=== PATIENT | male | born 1960 | race Hispanic/Latino ===

== ENCOUNTER 2018-06-16 14:50 | Emergency (ER) | payer BC, OTHER ==
[2018-06-16 14:56] VITALS: BP 141/87; PULSE 96; RESP 18; TEMP 97.6; O2SAT 99
--- NOTE | 2018-06-16 15:50 | ED PDOC ---
Upper Extremity Pain/Injury Time Seen by Provider: 06/16/18 14:57 Chief Complaint (Nursing): Upper Extremity Problem/Injury Chief Complaint (Provider): Upper Extremity Problem/Injury History Per: Patient History/Exam Limitations: no limitations Onset/Duration Of Symptoms: Days (1x week) Current Symptoms Are (Timing): Still Present Additional Complaint(s): 58 year old male with a medical history of hypertension presents to the ED for an evaluation of left shoulder pain that has been worsening for x1 week. At onset, patient reports he was trying to pull a bag of dog food from a high shelf, which is when the pain started. Patient states that the pain was initially not bad, but has worsened throughout this past week. Patient reports taking anti-inflammatories with no relief (none taken today). Pain now interferes with sleeping and worsens with movement. Otherwise: (-) radiation of pain, (-) falls, (-) trauma to the area, (-) previous shoulder injuries, (-) previous shoulder surgeries, (-) shortness of breath, (-) chest pain, (-) cough, (-) fever, (-) nausea, (-) vomiting, (-) diarrhea, (-) abdominal pain. PMD: Allen Carnes MD Past Medical History Reviewed: Historical Data, Nursing Documentation, Vital Signs Vital Signs: Last Vital Signs Temp 97.6 F 06/16/18 14:53 Pulse 96 H 06/16/18 14:53 Resp 18 06/16/18 14:53 BP 141/87 06/16/18 14:53 Pulse Ox 99 06/16/18 14:53 - Medical History PMH: HTN - Surgical History Surgical History: Tonsillectomy Other surgeries: multiple procedures to left ankle - Family History Family History: States: Unknown Family Hx - Living Arrangements Living Arrangements: With Family - Social History Current smoker - smoking cessation education provided: Yes (<10 cigarettes daily) Alcohol: Social Drugs: Denies - Home Medications Home Medications: Ambulatory Orders Medication Instructions Recorded Atenolol 25 mg PO DAILY 06/27/14 Hydrochlorothiazide [HCTZ] 12.5 mg PO DAILY 06/27/14 Acetaminophen [Acetaminophen 8 650 mg PO Q8 PRN #21 tablet.er 06/16/18 Hour] Meloxicam [Mobic] 15 mg PO DAILY PRN #10 tab 11/24/18 Methocarbamol [Robaxin] 750 mg PO Q8 PRN #12 tab 06/16/18 - Allergies Allergies/Adverse Reactions: Allergies Allergy/AdvReac Type Severity Reaction Status Date / Time prochlorperazine Allergy DIZZINESS Verified 06/16/18 14:52 [From Compazine] Review of Systems ROS Statement: Except As Marked, All Systems Reviewed And Found Negative Constitutional: Negative for: Fever Cardiovascular: Negative for: Chest Pain Respiratory: Negative for: Cough, Shortness of Breath Gastrointestinal: Negative for: Nausea, Vomiting, Abdominal Pain Musculoskeletal: Positive for: Shoulder Pain (left) Physical Exam - Reviewed Nursing Documentation Reviewed: Yes Vital Signs Reviewed: Yes - Physical Exam Comments: GENERAL APPEARANCE: Patient is awake, alert, oriented x 3, resting comfortably; in no acute distress. SKIN: Warm, dry; (-) cyanosis. NECK: Supple, FROM CHEST AND RESPIRATORY: (-) rales, (-) rhonchi, (-) wheezes; breath sounds equal bilaterally. Respirations even and nonlabored. HEART AND CARDIOVASCULAR: (-) irregularity LEFT SHOULDER: Decreased abduction and extension secondary to pain. Tenderness to anterior and lateral aspects of left shoulder, AC joint, distal clavicle, and proximal humerus. (-) AC joint deformity (-) swelling, (-) crepitus, (-) erythema, (-) warmth, (-) ecchymosis (-) tenting. Sensation intact throughout upper extremity, remainder of upper extremity: full ROM. Slat Grader strength equal. Distal pulses 2+. NEURO AND PSYCH: Mental status as above. Gait: steady. Speech: clear. (-) facial asymmetry (-) aphasia - ECG O2 Sat by Pulse Oximetry: 99 (RA) Pulse Ox Interpretation: Normal Medical Decision Making Medical Decision Makin:55 Clinical impression: 58 year old male with acute shoulder pain Initial impression: -XRay shoulder left -Toradol 30 mg IM -Ultram 50 mg PO (Not driving home) 15:56 XRay shoulder left read and reviewed by radiologist. Report follows: FINDINGS: BONES: No evidence of acute displaced fracture nor dislocation. The osseous structures appear intact JOINTS: Mild degenerative osteoarthritis left acromioclavicular and glenohumeral joints. SOFT TISSUES: Normal. OTHER FINDINGS: None. IMPRESSION: No acute fractures. Mild DJD as described. Upon discussion of results with patient, patient requesting discharge with Percocet. When advised that percocet would not be supplied, patient requesting to speak with supervising MD. Case discussed with Dr Arce, who is agreeable to evaluating patient at bedside. 1650 Patient seen at bedside by Dr Arce. Upon review of [facility], patient with two Percocet perscriptions in 2018 - one in November and one in February. On exam, patient remains AAOx3, in no acute distress. Lungs clear to auscultation, cardiac RRR, repeat neuro exam shows no focal findings. Vitals stable. Lab/Diagnostic results d/w the patient in great detail. Diagnosis of acute shoulder pain, OA of shoulder, calcific tendonitis d/w the patient. Based on history, exam and diagnostic results, plan will be for outpatient follow up with PMD/ortho. Patient instructed to follow-up with pmd / referral provided / the clinic in 1- 2 days without fail. Advised to take medication as prescribed. Return to the emergency room at any time for any new or worsening symptoms. Patient states he fully agrees with and understands discharge instructions. States that he agrees with the plan and disposition. Verbalized and repeated discharge instructions and plan. I have given the patient opportunity to ask any additional questions. Scribe Attestation: Documented by Sandy Quigley, acting as a scribe for Sandy Smith. Provider Scribe Attestation: All medical record entries made by the Scribe were at my direction and personally dictated by me. I have reviewed the chart and agree that the record accurately reflects my personal performance of the history, physical exam, medical decision making, and the department course for this patient. I have also personally directed, reviewed, and agree with the discharge instructions and disposition. Disposition - Clinical Impression Clinical Impression: Acute shoulder pain, Muscle strain of left shoulder, Calcific tendonitis of left shoulder, Osteoarthritis of left shoulder - Patient ED Disposition Is Patient to be Admitted: No Counseled Patient/Family Regarding: Studies Performed, Diagnosis, Need For Followup, Rx Given - Disposition Referrals: Allen Carnes MD [Staff Provider] - Yohannes Judge MD [Staff Provider] - Disposition: Routine/Home Disposition Time: 16:50 Condition: STABLE Additional Instructions: The emergency medical care you received today was directed at your acute symptoms. If you were prescribed any medication, please fill it and take as directed. It may take several days for your symptoms to resolve. Return to the Emergency Department if your symptoms worsen, do not improve, or if you have any other problems. Please contact your doctor in 2 days for re-evaluation and follow up / or call one of the physicians/clinics you have been referred to that are listed on the Patient Visit Information form that is included in your discharge packet. Bring any paperwork you were given at discharge with you along with any medications you are taking to your follow up visit. Our treatment cannot replace ongoing medical care by a primary care provider (PCP) outside of the emergency department. Prescriptions: Acetaminophen [Acetaminophen 8 Hour] 650 mg PO Q8 PRN #21 tablet.er PRN Reason: Pain, Moderate (4-7) Meloxicam [Mobic] 15 mg PO DAILY PRN #10 tab PRN Reason: Pain, Moderate (4-7) Methocarbamol [Robaxin] 750 mg PO Q8 PRN #12 tab PRN Reason: Muscle Spasm Instructions: Osteoarthritis, Muscle Strain, Calcific Tendonitis of the Shoulder (DC), Shoulder Pain (DC) Forms: [employer] (Macedonian) Print Language: GABONESE - POA Present On Arrival: None
--- NOTE | 2018-06-16 16:00 | RAD ---
Date of service: 06/16/2018 PROCEDURE: Radiographs of the Left Shoulder HISTORY: r/o fracture COMPARISON: No prior. FINDINGS: BONES: No evidence of acute displaced fracture nor dislocation. The osseous structures appear intact JOINTS: Mild degenerative osteoarthritis left acromioclavicular and glenohumeral joints. SOFT TISSUES: Normal. OTHER FINDINGS: None. IMPRESSION: No acute fractures. Mild DJD as described.
== END 2018-06-16 17:05 | disposition home or self-care (01) ==
LOC: H.ER 14:50
DX: S46.912A Strain of unspecified muscle, fascia and tendon at shoulder and upper arm level, left arm, initial encounter (principal); M75.32 Calcific tendinitis of left shoulder; M19.012 Primary osteoarthritis, left shoulder; I10 Essential (primary) hypertension; F17.210 Nicotine dependence, cigarettes, uncomplicated
CPT/HCPCS: 73030; 96372; 99283; J1885